=== PATIENT | female | born 1990 | race Two or more races ===

== ENCOUNTER 2019-01-04 10:48 | Emergency (ER) | payer OTHER ==
[~2019-01-04] VITALS: Ht 160 cm; Wt 104.3 kg
[2019-01-04 10:52] VITALS: BP 117/73
[2019-01-04] MEDS ORDERED: IBUPROFEN 600 MG TABLET PO ONE ×2 (11:19→11:30)
== END 2019-01-04 12:00 | disposition home or self-care (01) ==
LOC: ER 10:51
DX: M25.512 Pain in left shoulder (principal); M54.9 Dorsalgia, unspecified; Z90.49 Acquired absence of other specified parts of digestive tract; X50.1XXA Overexertion from prolonged static or awkward postures, initial encounter; Y93.89 Activity, other specified; Y92.89 Other specified places as the place of occurrence of the external cause; Y99.0 Civilian activity done for income or pay